=== PATIENT | male | born 1950 | race Caucasian/White ===

== ENCOUNTER 2019-04-16 08:39 | Emergency (ER) | payer MEDICARE ==
[2019-04-16 09:18] LABS: #Eosinphils 0.3 thou/uL (0.0-0.7); #Lymphocytes 1.8 thou/uL (1.20-3.40); #Monocytes 0.9 thou/uL (0.11-0.59); #Neutrophils 7.6 thou/uL (1.40-6.50); %Basophils 0.4 % (0.0-1.0); %Eosinophils 2.7 % (0.0-10.0); %Lymphocytes 17.1 % (21.0-51.0); %Monocytes 8.5 % (0.0-10.0); %Neutrophils 71.3 % (42.0-75.0); Hemoglobin 16.1 g/dL (14.0-18.0); Mean Corpuscular HGB CONC 32.6 g/dL (32.0-36.0); Mean Corpuscular Volume 95.1 fL (78.0-98.0); Mean Platelet Volume 8.3 fL (7.4-10.4); Platelet Count 357 thou/uL (130-400); RBC Distribution Width 12.7 % (11.5-14.5); Red Blood Cell (RBC) Count 5.18 mill/uL (4.70-6.10); White Blood Cell (WBC) Count 10.6 thou/uL (4.8-10.8)
[2019-04-16 09:42] LABS: ALT (SGPT) 24 U/L (8-55); AST (SGOT) 19 U/L (5-34); Alkaline Phosphatase 97 U/L (40-150); Anion Gap 13 mmol/L (10-20); BUN (Urea Nitrogen) 11 mg/dL (8.4-25.7); Bilirubin, Total 0.9 mg/dL (0.2-1.2); Calc. Creatinine Clearance 0 mL/min (70-130); Calcium 9.8 mg/dL (7.8-10.44); Carbon Dioxide 27 mmol/L (23-31); Chloride 98 mmol/L (98-107); Estimated GFR-MDRD 89; Globulin 3.6 g/dL (2.4-3.5); Glucose 134 mg/dL (80-115); Potassium 3.4 mmol/L (3.5-5.1); Protein, Total 7.6 g/dL (5.8-8.1); Sodium 135 mmol/L (136-145)
--- NOTE | 2019-04-16 09:53 | CT ---
EXAM: CT neck with contrast HISTORY: Left lower jaw abscess seen 3 weeks ago. This has not gotten better on antibiotics COMPARISON: 04/08/2019 TECHNIQUE: Multiple contiguous axial images were obtained and a CT of the neck with contrast. Sagitta l and coronal reformats were performed. FINDINGS: Soft tissue swelling is again seen along the left jaw subcutaneous tissues. The soft tissue swelling appears to have increased in size measuring 3.2 cm in greatest dimension with overlying skin thickening. There are approximately 3 tiny subcentimeter fluid collections in the center of this area of inflammatory change. Periapical lucency is seen surrounding the left posterior most mandibular tooth. No mucosal abnormality is seen in the nasopharynx, oropharynx, hypopharynx, or subglottic regions. No cervical adenopathy is seen. The salivary glands are symmetric thousand focal abnormality. The thyroid is unremarkable. No osseous abnormality is seen in the cervical spine. The visualized intracranial structures are unremarkable. The lung apices are unremarkable. A mucus re tention cyst is seen in the right maxillary sinus. IMPRESSION: Enlargement of left jaw line phlegmon
[2019-04-16] MEDS ORDERED: Lidocaine 1% (PF) 30 ML VIAL ONE (10:53)
[2019-04-16] MEDS ORDERED: Ketorolac Tromethamine 30 MG/ML VIAL ONE (11:06)
[2019-04-16] MEDS ORDERED: ISOVUE-370 76%-LOCM 1 ML ONE (14:46)
== END 2019-04-16 11:43 | disposition home or self-care (01) ==
LOC: ERS 08:39
DX: L02.01 Cutaneous abscess of face (principal); I10 Essential (primary) hypertension; F17.220 Nicotine dependence, chewing tobacco, uncomplicated
CPT/HCPCS: 10060; 36415; 70491; 80053; 85025; 96374; J1885; J2001; Q9966

== ENCOUNTER 2023-07-06 18:42 | Inpatient (IN) | payer MEDICARE ==
[2023-07-08] MEDS ORDERED: Lorazepam 1 MG TAB PO PRN (00:20)
[2023-07-08] MEDS ORDERED: Glucagon 1 MG/ML KIT IM PRN (00:20)
[2023-07-08] MEDS ORDERED: Acetaminophen 650 MG Suppository PR PRN (00:20)
[2023-07-08] MEDS ORDERED: Ondansetron ODT 4 MG TAB PO PRN ×2 (00:20)
[2023-07-08] MEDS ORDERED: Acetaminophen 325 MG TAB PO PRN (00:20)
[2023-07-08] MEDS ORDERED: Dextrose 50% Abboject 50 ML SYRINGE SLOW IVP PRN (00:20)
[2023-07-08] MEDS ORDERED: Dextrose 5% in Water 1,000 ML IV PRN (00:20)
[2023-07-08] MEDS ORDERED: HumaLOG 300 UNITS/3 ML VIAL SC PRN (00:20)
[2023-07-08] MEDS ORDERED: Ondansetron PF 4 MG/2 ML Vial IVP PRN (00:20)
[2023-07-08] MEDS ORDERED: Lorazepam 2 MG/ML VIAL IM PRN (00:20)
[2023-07-08] MEDS ORDERED: Electrolyte Replacement Protocol 1 EACH FS SCH (00:30)
[2023-07-08] MEDS ORDERED: cloNIDine 0.1 MG TAB PO PRN (00:52)
[2023-07-08] MEDS ORDERED: hydrALAZINE 20 MG/ML VIAL SLOW IVP PRN (00:52)
[2023-07-08] MEDS: Thiamine HCl 200 MG/2 ML VIAL SLOW IVP SCH (01:17)
[2023-07-08] MEDS: hydrALAZINE 20 MG/ML VIAL SLOW IVP PRN ×3 (01:18→09:22)
[2023-07-08] MEDS: Lorazepam 1 MG TAB PO SCH ×5 (01:18→23:48)
[2023-07-08] MEDS ORDERED: Dexmedetomidine In 0.9 % NaCl 100 ML IVPB SCH (02:00)
[2023-07-08] MEDS ORDERED: Lorazepam 2 MG/ML VIAL SLOW IVP PRN (02:04)
[2023-07-08] MEDS: Dexmedetomidine 400 MCG, Admixture Fee 1 EACH in Sodium Chloride 0.9% 96 ML IVPB SCH ×3 (02:23→16:36)
[2023-07-08] MEDS ORDERED: Lorazepam 2 MG/ML VIAL SLOW IVP SCH (02:45)
[2023-07-08] MEDS: Potassium Chloride 10 MEQ in Dextrose 5 % And 0.9 % NaCl 1,000 ML IV SCH ×2 (05:42→23:58)
[2023-07-08 06:15] LABS: #Monocytes 1.5 thou/uL (0.11-0.59); #Neutrophils 8.4 thou/uL (1.40-6.50); %Basophils 0.3 % (0.0-1.0); %Eosinophils 0.3 % (0.0-10.0); %Lymphocytes 14.5 % (21.0-51.0); %Monocytes 12.5 % (0.0-10.0); %Neutrophils 72.1 % (42.0-75.0); Hematocrit 49.4 % (42.0-52.0); Hemoglobin 16.3 g/dL (14.0-18.0); Mean Corpuscular Hemoglobin 32.1 pg (27.0-31.0); Mean Corpuscular Volume 97.2 fl (78.0-98.0); Mean Platelet Volume 12.5 fL (7.4-10.4); Platelet Count 166 10x3/uL (130-400); RBC Distribution Width 14.2 % (11.5-14.5); Red Blood Cell (RBC) Count 5.08 mill/uL (4.70-6.10); White Blood Cell (WBC) Count 11.7 10x3/uL (4.8-10.8)
[2023-07-08 07:02] LABS: Phosphorus 2.8 mg/dL (2.3-4.7)
[2023-07-08 07:04] LABS: Anion Gap 14 mmol/L (10-20); BUN (Urea Nitrogen) 12 mg/dL (8.4-25.7); Calc. Creatinine Clearance 139 mL/min (70-130); Calcium 8.9 mg/dL (7.8-10.44); Carbon Dioxide 25 mmol/L (23-31); Chloride 98 mmol/L (98-107); Estimated GFR 93; Glucose 125 mg/dL (83-110); Magnesium 2.1 mg/dL (1.6-2.6); Potassium 3.2 mmol/L (3.5-5.1); Sodium 134 mmol/L (136-145)
[2023-07-08] MEDS: Folic Acid 1 MG TAB PO SCH (07:58)
[2023-07-08] MEDS: Multivit, Therapeutic 1 TAB PO SCH (07:58)
[2023-07-08 12:17] LABS: Cardiac Risk 3.7 (Less than 4.5)
[2023-07-09] MEDS ORDERED: Lorazepam 1 MG TAB PO PRN (00:20)
[2023-07-09] MEDS: Thiamine HCl 200 MG/2 ML VIAL SLOW IVP SCH (00:48)
[2023-07-09] MEDS: Lorazepam 2 MG/ML VIAL SLOW IVP PRN ×2 (01:17→14:38)
[2023-07-09] MEDS: Dexmedetomidine 400 MCG, Admixture Fee 1 EACH in Sodium Chloride 0.9% 96 ML IVPB SCH ×2 (02:40→08:59)
[2023-07-09 04:08] LABS: #Eosinphils 0.4 thou/uL (0.0-0.7); %Basophils 0.3 % (0.0-1.0); %Eosinophils 3.7 % (0.0-10.0); %Lymphocytes 12.9 % (21.0-51.0); %Monocytes 10.3 % (0.0-10.0); %Neutrophils 72.4 % (42.0-75.0); Hematocrit 47.4 % (42.0-52.0); Hemoglobin 16.1 g/dL (14.0-18.0); Mean Corpuscular Hemoglobin 31.6 pg (27.0-31.0); Mean Platelet Volume 10.6 fL (7.4-10.4); Platelet Count 208 10x3/uL (130-400); RBC Distribution Width 13.7 % (11.5-14.5); White Blood Cell (WBC) Count 9.7 10x3/uL (4.8-10.8)
[2023-07-09 04:23] LABS: Mean Corpuscular Volume 92.9 fl (78.0-98.0)
[2023-07-09 04:39] LABS: ALT (SGPT) 24 U/L (8-55); AST (SGOT) 26 U/L (5-34); Albumin 3.5 g/dL (3.4-4.8); Alkaline Phosphatase 86 U/L (40-110); Anion Gap 14 mmol/L (10-20); BUN (Urea Nitrogen) 11 mg/dL (8.4-25.7); Bilirubin, Total 1.2 mg/dL (0.2-1.2); Calc. Creatinine Clearance 156 mL/min (70-130); Calcium 8.5 mg/dL (7.8-10.44); Carbon Dioxide 20 mmol/L (23-31); Chloride 103 mmol/L (98-107); Estimated GFR 97; Globulin 2.9 g/dL (2.4-3.5); Glucose 146 mg/dL (83-110); Potassium 3.1 mmol/L (3.5-5.1); Protein, Total 6.4 g/dL (5.8-8.1); Sodium 134 mmol/L (136-145)
[2023-07-09] MEDS: hydrALAZINE 20 MG/ML VIAL SLOW IVP PRN ×3 (05:06→18:05)
[2023-07-09] MEDS: Lorazepam 1 MG TAB PO SCH ×3 (06:35→18:05)
[2023-07-09] MEDS ORDERED: Potassium Chloride 20 MEQ TAB PO SCH (08:00)
[2023-07-09] MEDS: Potassium Chloride 20 MEQ in Premix 1 BAG IVPB SCH ×2 (08:59→11:22)
[2023-07-09] MEDS: Multivit, Therapeutic 1 TAB PO SCH (09:00)
[2023-07-09] MEDS: Folic Acid 1 MG TAB PO SCH (09:00)
[2023-07-09] MEDS: Potassium Chloride 10 MEQ in Dextrose 5 % And 0.9 % NaCl 1,000 ML IV SCH (20:59)
[2023-07-09] MEDS: Multivitamins, Adult 10 ML, Folic Acid 1 MG, Thiamine HCl 100 MG in Dextrose 5 %-0.45 %... IV SCH (21:14)
[2023-07-09] MEDS: Lorazepam 2 MG/ML VIAL SLOW IVP SCH (21:15)
[2023-07-09] MEDS ORDERED: Lorazepam 2 MG/ML VIAL SLOW IVP SCH (23:00)
[2023-07-10] MEDS ORDERED: Lorazepam 1 MG TAB PO PRN (00:20)
[2023-07-10] MEDS: Lorazepam 0.5 MG TAB PO SCH ×4 (00:48→18:18)
[2023-07-10] MEDS: Lorazepam 2 MG/ML VIAL SLOW IVP SCH ×4 (00:52→20:47)
[2023-07-10] MEDS: Thiamine HCl 200 MG/2 ML VIAL SLOW IVP SCH (00:52)
[2023-07-10] MEDS: Dexmedetomidine 400 MCG, Admixture Fee 1 EACH in Sodium Chloride 0.9% 96 ML IVPB SCH (02:43)
[2023-07-10] MEDS ORDERED: Lorazepam 2 MG/ML VIAL SLOW IVP SCH (02:45)
[2023-07-10] MEDS: hydrALAZINE 20 MG/ML VIAL SLOW IVP PRN ×2 (04:06→12:42)
[2023-07-10 04:26] LABS: #Basophils 0.1 thou/uL (0.0-0.2); #Eosinphils 0.1 thou/uL (0.0-0.7); #Monocytes 1.5 thou/uL (0.11-0.59); #Neutrophils 9.5 thou/uL (1.40-6.50); %Basophils 0.5 % (0.0-1.0); %Eosinophils 0.4 % (0.0-10.0); %Lymphocytes 8.3 % (21.0-51.0); %Monocytes 12.6 % (0.0-10.0); %Neutrophils 77.7 % (42.0-75.0); Hematocrit 49.5 % (42.0-52.0); Hemoglobin 16.4 g/dL (14.0-18.0); Mean Corpuscular HGB CONC 33.1 g/dL (32.0-36.0); Mean Corpuscular Hemoglobin 32.2 pg (27.0-31.0); Mean Corpuscular Volume 97.1 fl (78.0-98.0); Mean Platelet Volume 11.9 fL (7.4-10.4); Platelet Count 181 10x3/uL (130-400); RBC Distribution Width 14.3 % (11.5-14.5); White Blood Cell (WBC) Count 12.2 10x3/uL (4.8-10.8)
[2023-07-10 04:36] LABS: Anion Gap 18 mmol/L (10-20); BUN (Urea Nitrogen) 11 mg/dL (8.4-25.7); Calc. Creatinine Clearance 153 mL/min (70-130); Calcium 8.5 mg/dL (7.8-10.44); Carbon Dioxide 11 mmol/L (23-31); Chloride 107 mmol/L (98-107); Estimated GFR 95; Glucose 134 mg/dL (83-110); Potassium 3.3 mmol/L (3.5-5.1); Sodium 133 mmol/L (136-145)
[2023-07-10] MEDS ORDERED: Potassium Chloride 20 MEQ TAB PO SCH (08:30)
[2023-07-10] MEDS ORDERED: Magnesium 2 GM/50 ML(in water) 2 GM in Premix 1 BAG IVPB SCH (09:00)
[2023-07-10] MEDS: Potassium Chloride 10 MEQ in Dextrose 5 % And 0.9 % NaCl 1,000 ML IV SCH (09:51)
[2023-07-10] MEDS: Potassium Chloride 20 MEQ in Premix 1 BAG IVPB SCH ×2 (09:52→12:37)
[2023-07-10] MEDS: Dexmedetomidine 1,000 MCG, Admixture Fee 1 EACH in Sodium Chloride 0.9% 250 ML 240 ML IVPB SCH ×2 (09:52→20:47)
[2023-07-10] MEDS: Multivit, Therapeutic 1 TAB PO SCH (09:55)
[2023-07-10] MEDS: Folic Acid 1 MG TAB PO SCH (09:55)
[2023-07-10] MEDS ORDERED: Potassium Chloride 20 MEQ in Lactated Ringer's 1,000 ML IV SCH (18:00)
[2023-07-10] MEDS ORDERED: QUEtiapine 25 MG TAB PER TUBE SCH (19:00)
[2023-07-10 20:34] LABS: Lactic Acid 0.7 mmol/L (0.5-2.2)
[2023-07-10] MEDS: Multivitamins, Adult 10 ML, Folic Acid 1 MG, Thiamine HCl 100 MG in Dextrose 5 %-0.45 %... IV SCH (20:46)
[2023-07-10] MEDS: Melatonin 3 MG TAB PO SCH (20:57)
[2023-07-10] MEDS ORDERED: Sodium Bicarbonate 150 MEQ in Dextrose 5% in Water 1,000 ML IV SCH ×2 (22:30)
[2023-07-10] MEDS: Metamucil PACK PER TUBE SCH (23:08)
[2023-07-10 23:59] LABS: Lactic Acid 0.8 mmol/L (0.5-2.2)
[2023-07-11] MEDS ORDERED: Sodium Chloride 0.9% 500 ML IV SCH ×2 (01:00)
[2023-07-11] MEDS: Lorazepam 2 MG/ML VIAL SLOW IVP SCH ×4 (01:39→20:52)
[2023-07-11 02:29] LABS: Bilirubin Negative (Negative); Blood, Urine 2+ (Negative); Clarity Clear (Clear); Glucose, Urine (Dipstick) 50 mg/dL (Negative); Ketone, Urine Negative (Negative); Leukocyte 250 Leu/uL (Negative); Nitrite Negative (Negative); Protein, Urine (Dipstick) 50 mg/dL (Neg-Trace); Specific Gravity, Urine 1.034 (1.002-1.036)
[2023-07-11] MEDS ORDERED: Albumin 25% 25 GM/100 ML BOT IVPB SCH (04:00)
[2023-07-11 04:21] LABS: #Eosinphils 0.4 thou/uL (0.0-0.7); #Monocytes 0.9 thou/uL (0.11-0.59); #Neutrophils 5.8 thou/uL (1.40-6.50); %Basophils 0.4 % (0.0-1.0); %Eosinophils 4.6 % (0.0-10.0); %Lymphocytes 15.1 % (21.0-51.0); %Neutrophils 68.7 % (42.0-75.0); Hematocrit 44.1 % (42.0-52.0); Hemoglobin 14.7 g/dL (14.0-18.0); Mean Corpuscular HGB CONC 33.3 g/dL (32.0-36.0); Mean Corpuscular Hemoglobin 31.8 pg (27.0-31.0); Mean Corpuscular Volume 95.5 fl (78.0-98.0); Mean Platelet Volume 11.5 fL (7.4-10.4); Platelet Count 209 10x3/uL (130-400); RBC Distribution Width 14.3 % (11.5-14.5); Red Blood Cell (RBC) Count 4.62 mill/uL (4.70-6.10); White Blood Cell (WBC) Count 8.4 10x3/uL (4.8-10.8)
[2023-07-11 04:54] LABS: Anion Gap 11 mmol/L (10-20); BUN (Urea Nitrogen) 13 mg/dL (8.4-25.7); Calc. Creatinine Clearance 145 mL/min (70-130); Calcium 8.1 mg/dL (7.8-10.44); Carbon Dioxide 22 mmol/L (23-31); Chloride 104 mmol/L (98-107); Estimated GFR 94; Glucose 180 mg/dL (83-110); Potassium 3.3 mmol/L (3.5-5.1); Sodium 134 mmol/L (136-145)
[2023-07-11] MEDS: Potassium Chloride 20 MEQ in Premix 1 BAG IVPB SCH ×2 (08:28→11:18)
[2023-07-11] MEDS: Thiamine 100 MG TAB PO SCH ×2 (08:29→08:36)
[2023-07-11] MEDS: Folic Acid 1 MG TAB PO SCH ×2 (08:29→08:36)
[2023-07-11] MEDS: Multivit, Therapeutic 1 TAB PO SCH (08:29)
[2023-07-11] MEDS: Pantoprazole 40 MG VIAL IVP SCH (08:30)
[2023-07-11] MEDS ORDERED: FLU VACC QS2023(65UP)/MF59C/PF 60 MCG/0.5 ML SYRINGE IM ONE (09:00)
[2023-07-11] MEDS: hydrALAZINE 20 MG/ML VIAL SLOW IVP PRN (09:12)
[2023-07-11] MEDS: Metamucil PACK PER TUBE SCH ×2 (09:15→20:35)
[2023-07-11 11:53] LABS: Actual Bicarbonate (HCO3a) 26.1 mEq/L (22-28); CO2 Tension 32.3 mmHg (35.0-45.0); Calcium, Ionized (arterial) 1.13 mmol/L (1.12-1.30); Carboxyhemoglobin (COHb) 0.8 gm% (0.0-3.0); Hematocrit-ABG 47 % (42.0-52.0); Hemoglobin (Hb) 16.1 g/dL (14.0-18.0); Potassium - ABG Lab 3.44 mmol/L (3.70-5.30); pH, Arterial 7.526 (7.35-7.45)
[2023-07-11 11:57] LABS: Puncture Site RBA
[2023-07-11] MEDS ORDERED: Labetalol HCl 100 MG/20 ML VIAL SLOW IVP PRN (12:15)
[2023-07-11] MEDS ORDERED: Mannitol 12.5 GM/50 ML SLOW IVP SCH (12:30)
[2023-07-11] MEDS ORDERED: Labetalol HCl 100 MG/20 ML VIAL SLOW IVP SCH (12:30)
[2023-07-11] MEDS ORDERED: Potassium Bicarbonate/Cit Ac 20 MEQ TAB PO SCH (12:45)
[2023-07-11] MEDS ORDERED: QUEtiapine 25 MG TAB PO SCH (12:45)
[2023-07-11] MEDS: Labetalol HCl 100 MG TAB PO SCH ×2 (15:07→20:35)
[2023-07-11] MEDS ORDERED: hydrALAZINE 20 MG/ML VIAL SLOW IVP PRN (17:13)
[2023-07-11] MEDS: QUEtiapine 25 MG TAB PO SCH (19:07)
[2023-07-11] MEDS: Melatonin 3 MG TAB PO SCH (20:37)
[2023-07-11] MEDS: Tetrahydrozoline 0.05% OPTH 15 ML BOT L EYE SCH (21:05)
[2023-07-12] MEDS: Lorazepam 2 MG/ML VIAL SLOW IVP SCH ×4 (02:13→21:21)
[2023-07-12 03:48] LABS: #Eosinphils 0.3 thou/uL (0.0-0.7); #Monocytes 1.4 thou/uL (0.11-0.59); #Neutrophils 7.3 thou/uL (1.40-6.50); %Basophils 0.3 % (0.0-1.0); %Eosinophils 3.2 % (0.0-10.0); %Lymphocytes 16.1 % (21.0-51.0); %Monocytes 12.6 % (0.0-10.0); %Neutrophils 67.6 % (42.0-75.0); Hematocrit 44.4 % (42.0-52.0); Hemoglobin 14.9 g/dL (14.0-18.0); Mean Corpuscular HGB CONC 33.6 g/dL (32.0-36.0); Mean Platelet Volume 11.5 fL (7.4-10.4); Platelet Count 234 10x3/uL (130-400); RBC Distribution Width 14.2 % (11.5-14.5); White Blood Cell (WBC) Count 10.8 10x3/uL (4.8-10.8)
[2023-07-12 03:50] LABS: Mean Corpuscular Volume 92.5 fl (78.0-98.0)
[2023-07-12 04:17] LABS: ALT (SGPT) 27 U/L (8-55); AST (SGOT) 24 U/L (5-34); Albumin 3.8 g/dL (3.4-4.8); Alkaline Phosphatase 94 U/L (40-110); Anion Gap 14 mmol/L (10-20); BUN (Urea Nitrogen) 11 mg/dL (8.4-25.7); Calc. Creatinine Clearance 160 mL/min (70-130); Calcium 8.9 mg/dL (7.8-10.44); Carbon Dioxide 25 mmol/L (23-31); Chloride 101 mmol/L (98-107); Estimated GFR 96; Globulin 2.7 g/dL (2.4-3.5); Glucose 138 mg/dL (83-110); Potassium 3.2 mmol/L (3.5-5.1); Protein, Total 6.5 g/dL (5.8-8.1); Sodium 137 mmol/L (136-145)
[2023-07-12] MEDS ORDERED: Metoprolol Tartrate 5 MG/5 ML VIAL IVP SCH ×2 (04:45→06:15)
[2023-07-12 07:11] LABS: Magnesium 2.2 mg/dL (1.6-2.6)
[2023-07-12] MEDS ORDERED: dilTIAZem 125 MG in Sodium Chloride 0.9% 100 ML IVPB SCH (07:15)
[2023-07-12] MEDS: Potassium Bicarbonate/Cit Ac 20 MEQ TAB PER TUBE SCH ×2 (07:57→08:27)
[2023-07-12] MEDS ORDERED: QUEtiapine 25 MG TAB PO SCH (09:00)
[2023-07-12] MEDS ORDERED: Amiodarone 150 MG, Admixture Fee 1 EACH in Dextrose 5% in Water 100 ML IVPB SCH (09:15)
[2023-07-12 09:32] LABS: Actual Bicarbonate (HCO3a) 26.6 mEq/L (22-28); Base Excess (BEa) 3.4 mEq/L (-2.0 to +3.0); Calcium, Ionized (arterial) 1.16 mmol/L (1.12-1.30); Carboxyhemoglobin (COHb) 0.6 gm% (0.0-3.0); Hematocrit-ABG 47 % (42.0-52.0); Hemoglobin (Hb) 16.1 g/dL (14.0-18.0); O2 Tension (PaO2), arterial 67.7 mmHg (> 70.0); Potassium - ABG Lab 3.44 mmol/L (3.70-5.30); pH, Arterial 7.486 (7.35-7.45)
[2023-07-12 09:38] LABS: Puncture Site LRA
[2023-07-12] MEDS: Amiodarone 450 MG in Dextrose 5% in Water 250 ML IVPB SCH ×2 (09:40→20:19)
[2023-07-12] MEDS ORDERED: Furosemide 40 MG/4 ML VIAL SLOW IVP SCH (10:00)
[2023-07-12] MEDS ORDERED: Vecuronium Bromide 50 MG in Sodium Chloride 0.9% 250 ML 250 ML IV SCH (10:00)
[2023-07-12] MEDS: Potassium Chloride 20 MEQ in Premix 1 BAG IVPB SCH ×3 (10:24→23:31)
[2023-07-12] MEDS: Labetalol HCl 100 MG TAB PO SCH ×3 (10:25→21:22)
[2023-07-12] MEDS: Multivit, Therapeutic 1 TAB PO SCH (10:25)
[2023-07-12] MEDS: Metamucil PACK PER TUBE SCH ×2 (10:25→21:43)
[2023-07-12] MEDS: Pantoprazole 40 MG VIAL IVP SCH (10:25)
[2023-07-12] MEDS: Tetrahydrozoline 0.05% OPTH 15 ML BOT L EYE SCH ×2 (10:26→21:42)
[2023-07-12 12:26] LABS: Potassium 3.4 mmol/L (3.5-5.1)
[2023-07-12] MEDS ORDERED: Potassium Chloride 20 MEQ in Premix 1 BAG IVPB SCH (13:00)
[2023-07-12] MEDS: Dexmedetomidine 1,000 MCG, Admixture Fee 1 EACH in Sodium Chloride 0.9% 250 ML 240 ML IVPB SCH (13:35)
[2023-07-12] MEDS: Lorazepam 0.5 MG TAB PO PRN (13:44)
[2023-07-12 20:03] LABS: Anion Gap 10 mmol/L (10-20); BUN (Urea Nitrogen) 13 mg/dL (8.4-25.7); Calc. Creatinine Clearance 134 mL/min (70-130); Calcium 8.6 mg/dL (7.8-10.44); Carbon Dioxide 29 mmol/L (23-31); Chloride 99 mmol/L (98-107); Estimated GFR 92; Glucose 191 mg/dL (83-110); Potassium 3.2 mmol/L (3.5-5.1); Sodium 135 mmol/L (136-145)
[2023-07-12] MEDS: QUEtiapine 25 MG TAB PO SCH (21:22)
[2023-07-12] MEDS: Melatonin 3 MG TAB PO SCH (21:23)
[2023-07-12] MEDS ORDERED: Potassium Bicarbonate/Cit Ac 20 MEQ TAB PER TUBE SCH (22:30)
[2023-07-13] MEDS: Potassium Chloride 20 MEQ in Premix 1 BAG IVPB SCH (02:43)
[2023-07-13] MEDS: Lorazepam 2 MG/ML VIAL SLOW IVP SCH ×2 (02:43→19:50)
[2023-07-13 04:33] LABS: #Eosinphils 0.6 thou/uL (0.0-0.7); #Neutrophils 7.7 thou/uL (1.40-6.50); %Basophils 0.4 % (0.0-1.0); %Eosinophils 5.8 % (0.0-10.0); %Lymphocytes 12.3 % (21.0-51.0); %Neutrophils 72.1 % (42.0-75.0); Hematocrit 43.4 % (42.0-52.0); Hemoglobin 14.4 g/dL (14.0-18.0); Mean Corpuscular HGB CONC 33.2 g/dL (32.0-36.0); Mean Corpuscular Hemoglobin 31.2 pg (27.0-31.0); Mean Corpuscular Volume 94.1 fl (78.0-98.0); Mean Platelet Volume 11.6 fL (7.4-10.4); Platelet Count 176 10x3/uL (130-400); RBC Distribution Width 14.3 % (11.5-14.5); Red Blood Cell (RBC) Count 4.61 mill/uL (4.70-6.10); White Blood Cell (WBC) Count 10.6 10x3/uL (4.8-10.8)
[2023-07-13 05:00] LABS: Anion Gap 10 mmol/L (10-20); BUN (Urea Nitrogen) 16 mg/dL (8.4-25.7); Calc. Creatinine Clearance 147 mL/min (70-130); Calcium 8.9 mg/dL (7.8-10.44); Carbon Dioxide 28 mmol/L (23-31); Chloride 101 mmol/L (98-107); Estimated GFR 94; Glucose 143 mg/dL (83-110); Potassium 4.1 mmol/L (3.5-5.1); Sodium 135 mmol/L (136-145)
[2023-07-13] MEDS: Amiodarone 200 MG TAB PO SCH ×2 (09:23→20:37)
[2023-07-13] MEDS: Thiamine 100 MG TAB PO SCH (09:23)
[2023-07-13] MEDS: Multivit, Therapeutic 1 TAB PO SCH (09:24)
[2023-07-13] MEDS: Folic Acid 1 MG TAB PO SCH (09:24)
[2023-07-13] MEDS: Empagliflozin 10 MG TAB PO SCH (09:24)
[2023-07-13] MEDS: Spironolactone 25 MG TAB PO SCH (09:24)
[2023-07-13] MEDS: Pantoprazole 40 MG VIAL IVP SCH (09:25)
[2023-07-13] MEDS: Metamucil PACK PER TUBE SCH ×2 (09:59→20:37)
[2023-07-13] MEDS: Tetrahydrozoline 0.05% OPTH 15 ML BOT L EYE SCH ×2 (09:59→20:36)
[2023-07-13] MEDS: Labetalol HCl 100 MG/20 ML VIAL SLOW IVP PRN (12:47)
[2023-07-13] MEDS ORDERED: Atenolol 50 MG TAB PO SCH (14:15)
[2023-07-13] MEDS: hydrALAZINE 25 MG TAB PO SCH (16:55)
[2023-07-13] MEDS: Melatonin 3 MG TAB PO SCH (20:37)
[2023-07-13] MEDS: QUEtiapine 25 MG TAB PO SCH (20:37)
[2023-07-13] MEDS: Atorvastatin Calcium 40 MG TAB PO SCH (20:37)
[2023-07-14] MEDS: Labetalol HCl 100 MG/20 ML VIAL SLOW IVP PRN ×2 (05:22→10:32)
[2023-07-14] MEDS: NIFEdipine XL 30 MG ER.TAB PO SCH ×2 (10:07→23:02)
[2023-07-14] MEDS: Multivit, Therapeutic 1 TAB PO SCH (10:07)
[2023-07-14] MEDS: Amiodarone 200 MG TAB PO SCH ×2 (10:07→21:43)
[2023-07-14] MEDS: Empagliflozin 10 MG TAB PO SCH (10:07)
[2023-07-14] MEDS: Spironolactone 25 MG TAB PO SCH (10:08)
[2023-07-14] MEDS: Metamucil PACK PER TUBE SCH ×2 (10:08→21:25)
[2023-07-14] MEDS: hydrALAZINE 25 MG TAB PO SCH ×2 (10:08→18:09)
[2023-07-14] MEDS: Atenolol 50 MG TAB PO SCH (10:08)
[2023-07-14] MEDS: Thiamine 100 MG TAB PO SCH ×2 (10:08→10:20)
[2023-07-14] MEDS: Pantoprazole 40 MG VIAL IVP SCH (10:09)
[2023-07-14] MEDS: Folic Acid 1 MG TAB PO SCH (10:21)
[2023-07-14] MEDS: Tetrahydrozoline 0.05% OPTH 15 ML BOT L EYE SCH ×2 (10:32→21:24)
[2023-07-14] MEDS: HumaLOG 300 UNITS/3 ML VIAL SC PRN (12:06)
[2023-07-14] MEDS: QUEtiapine 25 MG TAB PO SCH (18:09)
[2023-07-14] MEDS ORDERED: Acetaminophen 650 MG/20.3 ML UDCUP PO PRN (21:41)
[2023-07-14] MEDS: Melatonin 3 MG TAB PO SCH (21:43)
[2023-07-14] MEDS: Atorvastatin Calcium 40 MG TAB PO SCH (21:43)
[2023-07-14] MEDS ORDERED: Amlodipine 5 MG TAB PO SCH (22:30)
[2023-07-14] MEDS: Dexmedetomidine 1,000 MCG, Admixture Fee 1 EACH in Sodium Chloride 0.9% 250 ML 240 ML IVPB SCH (23:03)
[2023-07-15] MEDS: Tetrahydrozoline 0.05% OPTH 15 ML BOT L EYE SCH ×2 (08:00→20:25)
[2023-07-15] MEDS: Multivit, Therapeutic 1 TAB PO SCH (08:00)
[2023-07-15] MEDS: Amiodarone 200 MG TAB PO SCH ×2 (08:01→20:24)
[2023-07-15] MEDS: Empagliflozin 10 MG TAB PO SCH (08:01)
[2023-07-15] MEDS: Folic Acid 1 MG TAB PO SCH (08:01)
[2023-07-15] MEDS: Spironolactone 25 MG TAB PO SCH (08:01)
[2023-07-15] MEDS: Thiamine 100 MG TAB PO SCH (08:01)
[2023-07-15] MEDS: Atenolol 50 MG TAB PO SCH (08:01)
[2023-07-15] MEDS: hydrALAZINE 25 MG TAB PO SCH ×2 (08:01→16:36)
[2023-07-15] MEDS: Pantoprazole 40 MG VIAL IVP SCH (08:02)
[2023-07-15] MEDS ORDERED: Amlodipine 5 MG TAB PO SCH (09:00)
[2023-07-15] MEDS: Metamucil PACK PER TUBE SCH ×2 (09:03→20:23)
[2023-07-15] MEDS: Lorazepam 0.5 MG TAB PO PRN ×2 (10:48→20:24)
[2023-07-15] MEDS: QUEtiapine 25 MG TAB PO SCH (18:25)
[2023-07-15] MEDS: NIFEdipine XL 30 MG ER.TAB PO SCH (20:23)
[2023-07-15] MEDS: Atorvastatin Calcium 40 MG TAB PO SCH (20:24)
[2023-07-15] MEDS: Melatonin 3 MG TAB PO SCH (20:24)
[2023-07-16] MEDS: hydrALAZINE 25 MG TAB PO SCH ×2 (07:57→17:17)
[2023-07-16] MEDS: Spironolactone 25 MG TAB PO SCH (07:58)
[2023-07-16] MEDS: Amiodarone 200 MG TAB PO SCH ×2 (07:58→20:34)
[2023-07-16] MEDS: Folic Acid 1 MG TAB PO SCH (07:59)
[2023-07-16] MEDS: Metamucil PACK PER TUBE SCH ×2 (07:59→20:34)
[2023-07-16] MEDS: Pantoprazole 40 MG VIAL IVP SCH (07:59)
[2023-07-16] MEDS: NIFEdipine XL 30 MG ER.TAB PO SCH ×2 (07:59→20:33)
[2023-07-16] MEDS: Tetrahydrozoline 0.05% OPTH 15 ML BOT L EYE SCH ×2 (07:59→20:34)
[2023-07-16] MEDS: Multivit, Therapeutic 1 TAB PO SCH (07:59)
[2023-07-16] MEDS: Empagliflozin 10 MG TAB PO SCH (07:59)
[2023-07-16] MEDS: Atenolol 50 MG TAB PO SCH (07:59)
[2023-07-16] MEDS: HumaLOG 300 UNITS/3 ML VIAL SC PRN (10:51)
[2023-07-16] MEDS: Melatonin 3 MG TAB PO SCH (20:34)
[2023-07-16] MEDS: Atorvastatin Calcium 40 MG TAB PO SCH (20:34)
[2023-07-16] MEDS: QUEtiapine 25 MG TAB PO SCH (20:34)
[2023-07-17] MEDS: Dexmedetomidine 1,000 MCG, Admixture Fee 1 EACH in Sodium Chloride 0.9% 250 ML 240 ML IVPB SCH (03:57)
[2023-07-17] MEDS: Multivit, Therapeutic 1 TAB PO SCH (08:15)
[2023-07-17] MEDS: Thiamine 100 MG TAB PO SCH (08:15)
[2023-07-17] MEDS: Pantoprazole 40 MG VIAL IVP SCH (08:15)
[2023-07-17] MEDS: Folic Acid 1 MG TAB PO SCH (08:15)
[2023-07-17] MEDS: NIFEdipine XL 30 MG ER.TAB PO SCH ×2 (08:15→20:21)
[2023-07-17] MEDS: hydrALAZINE 25 MG TAB PO SCH ×2 (08:15→17:38)
[2023-07-17] MEDS: Amiodarone 200 MG TAB PO SCH ×2 (08:16→20:21)
[2023-07-17] MEDS: Empagliflozin 10 MG TAB PO SCH (08:16)
[2023-07-17] MEDS: Spironolactone 25 MG TAB PO SCH (08:16)
[2023-07-17] MEDS ORDERED: Atenolol 50 MG TAB PO SCH (09:00)
[2023-07-17] MEDS: Metamucil PACK PER TUBE SCH ×2 (14:40→20:22)
[2023-07-17] MEDS: QUEtiapine 25 MG TAB PO SCH (19:48)
[2023-07-17] MEDS: Atorvastatin Calcium 40 MG TAB PO SCH (20:21)
[2023-07-17] MEDS: Melatonin 3 MG TAB PO SCH (20:21)
[2023-07-17 20:22] VITALS: BP 142/85
[2023-07-18 05:27] VITALS: BMI 36.2
[2023-07-18 07:49] VITALS: TEMP 98
[2023-07-18] MEDS ORDERED: NIFEdipine XL 30 MG ER.TAB PO SCH (08:00)
[2023-07-18] MEDS ORDERED: NIFEdipine XL 60 MG ER.TAB PO SCH (09:00)
[2023-07-18] MEDS ORDERED: Lansoprazole 15 MG/5 ML (BATCHED)UDCUP PER TUBE SCH (09:00)
[2023-07-18] MEDS: Folic Acid 1 MG TAB PO SCH (09:45)
[2023-07-18] MEDS: Empagliflozin 10 MG TAB PO SCH (09:45)
[2023-07-18] MEDS: Spironolactone 25 MG TAB PO SCH (09:45)
[2023-07-18] MEDS: Amiodarone 200 MG TAB PO SCH (09:46)
[2023-07-18] MEDS: Thiamine 100 MG TAB PO SCH (09:46)
[2023-07-18] MEDS: Multivit, Therapeutic 1 TAB PO SCH (09:46)
[2023-07-18] MEDS: hydrALAZINE 25 MG TAB PO SCH (09:46)
[2023-07-18] MEDS: Metamucil PACK PER TUBE SCH (10:19)
== END 2023-07-18 13:07 | DRG 64 ==
LOC: 2SE 07-07 23:55 → CCU 07-08 02:19 → IMCU/EMU 07-08 21:16 → CCU 07-12 09:06 → IMCU/EMU 07-14 14:42
PROVIDERS: ADMIT Internal Medicine; ATTEND Family Medicine
PROC: 5A0935A Assistance with Respiratory Ventilation, Less than 24 Consecutive Hours, High Flow/Velocity Cannula (ICD-10-PCS; principal; 2023-07-11)
PROC: 4A033R1 Measurement of Arterial Saturation, Peripheral, Percutaneous Approach (ICD-10-PCS; 2023-07-11)
PROC: 5A09357 Assistance with Respiratory Ventilation, Less than 24 Consecutive Hours, Continuous Positive Airway Pressure (ICD-10-PCS; 2023-07-12)
DX: I63.512 Cerebral infarction due to unspecified occlusion or stenosis of left middle cerebral artery (principal); G92.8 Other toxic encephalopathy; I61.9 Nontraumatic intracerebral hemorrhage, unspecified; J81.0 Acute pulmonary edema; J96.01 Acute respiratory failure with hypoxia; E87.1 Hypo-osmolality and hyponatremia; E87.20 Acidosis, unspecified; J90 Pleural effusion, not elsewhere classified; F10.931 Alcohol use, unspecified with withdrawal delirium; G81.91 Hemiplegia, unspecified affecting right dominant side; I10 Essential (primary) hypertension; R13.19 Other dysphagia; E87.6 Hypokalemia; E66.01 Morbid (severe) obesity due to excess calories; F17.290 Nicotine dependence, other tobacco product, uncomplicated; I48.0 Paroxysmal atrial fibrillation; Z98.890 Other specified postprocedural states; Z68.36 Body mass index [BMI] 36.0-36.9, adult
CPT/HCPCS: 36415; 36416; 36600; 70450; 71045; 74018; 74230; 80048; 80053; 80061; 81003; 82040; 82306; 82805; 83605; 83735; 83880; 84100; 84145; 84443; 85025; 90471; 90694; 93005; 93010; 93306; 94660; 94760; C9113; G0008; J0282; J0360; J1815; J1940; J2060; J2150; J3411; J3475; J3480; J3490; J7030; J7042; J7050; J7070; P9047